=== PATIENT | female | born 1960 | race Caucasian/White ===

== ENCOUNTER → 2024-07-23 07:38 | Outpatient (REF) | payer OTHER, SELFPAY | LOC: HWRAD 07:38 | PROVIDERS: ATTENDING PHYSICIAN Internal Medicine | DX: Z87.891 Personal history of nicotine dependence (principal) | CPT/HCPCS: 71271 ==

== ENCOUNTER 2024-09-24 06:16 | Day surgery (SDC) | payer OTHER, SELFPAY | END 2024-09-24 13:07 | disposition home or self-care (01) | LOC: GI 06:16 | PROVIDERS: ATTENDING PHYSICIAN Internal Medicine Gastroenterology; FAMILY PHYSICIAN Internal Medicine | DX: Z12.11 Encounter for screening for malignant neoplasm of colon (principal); K57.30 Diverticulosis of large intestine without perforation or abscess without bleeding; Z86.0100 Personal history of colon polyps, unspecified; K63.5 Polyp of colon | CPT/HCPCS: 45385; 88305 ==

== ENCOUNTER 2024-10-19 06:20 | Day surgery (SDC) | payer OTHER, SELFPAY ==
[2024-10-19 07:55] VITALS: BMI 33.3
[2024-10-19 07:56] VITALS: BMI 33.3
[2024-10-19 08:06] VITALS: BP 132/74
[2024-10-19 09:50] VITALS: BP 107/62
[2024-10-19 10:00] VITALS: BP 106/79
[2024-10-19 10:17] VITALS: BP 110/81
== END 2024-10-19 10:30 | disposition home or self-care (01) ==
LOC: GI 06:20
PROVIDERS: ATTENDING PHYSICIAN Internal Medicine Gastroenterology
DX: K86.2 Cyst of pancreas (principal); K86.9 Disease of pancreas, unspecified
CPT/HCPCS: 43238; 88173; 88305